=== PATIENT | male | born 1970 | race African-American/Black ===

== ENCOUNTER 2017-09-18 17:01 | Inpatient (IN) | payer OTHER ==
[2017-09-18] MEDS: HYDROmorphONE 2 MG/ML SYG IV (17:31)
[2017-09-18] MEDS: ONDANSETRON 4 MG INJ IV (17:31)
[2017-09-18] MEDS: SOD CHLORIDE 0.9% 500 ML IV (17:32)
[2017-09-18 17:40] LABS: ADD MAN DIFF? NO
[2017-09-18 17:48] LABS: BASOPHILS % 0.2 % (0.0-2.0); EOSINOPHILS % 0.1 % (0.0-7.0); HEMATOCRIT 44.1 % (42.0-52.0); HEMOGLOBIN 13.9 g/dl (14.0-18.0); LYMPHOCYTES # 1.1 10^3/ul (0.8-2.9); LYMPHOCYTES % 6.7 % (15.0-51.0); MEAN CORPUSCULAR HEMOGLOBIN 26.5 pg (29.0-33.0); MEAN CORPUSCULAR HGB CONC 31.5 g/dl (32.0-37.0); MEAN PLATELET VOLUME 9.1 fl (7.4-10.4); MONOCYTES % 5.9 % (0.0-11.0); NEUTROPHIL # 13.9 10^3/ul (1.6-7.5); NEUTROPHILS % 86.7 % (39.0-77.0); PLATELET COUNT 236 10^3/UL (140-415); RED BLOOD COUNT 5.25 10^6/ul (4.70-6.10); RED CELL DISTRIBUTION WIDTH 13.9 % (11.5-14.5)
[2017-09-18 18:31] LABS: ANION GAP 15 (8-16); BLOOD UREA NITROGEN 13 mg/dl (7-20); CALCIUM 10.1 mg/dl (8.4-10.2); CARBON DIOXIDE 26 mmol/L (21-31); CHLORIDE 109 mmol/L (97-110); CREATININE 1.15 mg/dl (0.61-1.24); GLUCOSE 106 mg/dl (70-220); POTASSIUM 3.9 mmol/L (3.5-5.1); SODIUM 146 mmol/L (135-144)
[2017-09-18] MEDS: SOD CHLORIDE 0.9% 100 ML (18:33)
[2017-09-18] MEDS: IOHEXOL 300MG/ML 150 ML BTL (18:34)
[2017-09-18] MEDS: LORAZEPAM 2 MG INJ IV ×2 (20:18→20:25)
[2017-09-18] MEDS: HYDROmorphONE 1 MG/ML SYG IM (21:59)
[2017-09-18 22:34] LABS: INR 0.93; PARTIAL THROMBOPLASTIN TIME 24.1 Sec (25.0-35.0); PROTIME 12.6 Sec (11.9-14.9)
[2017-09-19] MEDS ORDERED: DOCUSATE SODIUM 100 MG CAP PO (00:30)
[2017-09-19] MEDS: FAMOTIDINE 20 MG TAB PO ×3 (00:30→20:20)
[2017-09-19] MEDS ORDERED: ZOLPIDEM 5 MG TAB PO (00:30)
[2017-09-19] MEDS ORDERED: NACL 0.9% 3 ML SYG IV (00:30)
[2017-09-19] MEDS ORDERED: ONDANSETRON 4 MG TAB PO (00:30)
[2017-09-19] MEDS ORDERED: HYDROCODONE/APAP (5/325) TAB PO (00:30)
[2017-09-19] MEDS: HYDROCODONE/APAP (5/325) TAB PO ×2 (03:08→11:51)
[2017-09-19] MEDS: LORAZEPAM 2 MG INJ IV (13:04)
[2017-09-19] MEDS: ALBUTEROL/IPRATROPIUM (NEB) 3 ML AMP HHN ×2 (17:04→19:34)
[2017-09-19] MEDS: KETOROLAC 15 MG INJ IV ×2 (18:06→23:47)
[2017-09-20] MEDS: ALBUTEROL/IPRATROPIUM (NEB) 3 ML AMP HHN ×6 (00:23→20:51)
[2017-09-20] MEDS: LORAZEPAM 2 MG INJ IV (05:43)
[2017-09-20 05:50] LABS: ADD MAN DIFF? NO
[2017-09-20 05:57] LABS: WHITE BLOOD COUNT 9.4 10^3/ul (4.8-10.8)
[2017-09-20 05:57] LABS: BASOPHILS % 0.2 % (0.0-2.0); EOSINOPHILS # 0.1 10^3/ul (0.0-0.5); EOSINOPHILS % 1.5 % (0.0-7.0); HEMOGLOBIN 12.7 g/dl (14.0-18.0); LYMPHOCYTES # 1.8 10^3/ul (0.8-2.9); LYMPHOCYTES % 18.6 % (15.0-51.0); MEAN CORPUSCULAR HEMOGLOBIN 26.5 pg (29.0-33.0); MEAN CORPUSCULAR HGB CONC 31.8 g/dl (32.0-37.0); MEAN CORPUSCULAR VOLUME 83.3 fl (82.0-101.0); MEAN PLATELET VOLUME 9.2 fl (7.4-10.4); MONOCYTE # 0.8 10^3/ul (0.3-0.9); MONOCYTES % 8.1 % (0.0-11.0); NEUTROPHIL # 6.7 10^3/ul (1.6-7.5); NEUTROPHILS % 71.3 % (39.0-77.0); PLATELET COUNT 192 10^3/UL (140-415); RED CELL DISTRIBUTION WIDTH 13.8 % (11.5-14.5)
[2017-09-20 06:20] LABS: ANION GAP 14 (8-16); BLOOD UREA NITROGEN 9 mg/dl (7-20); CALCIUM 9.1 mg/dl (8.4-10.2); CARBON DIOXIDE 28 mmol/L (21-31); CHLORIDE 106 mmol/L (97-110); CREATININE 1.14 mg/dl (0.61-1.24); GLUCOSE 107 mg/dl (70-220); POTASSIUM 3.5 mmol/L (3.5-5.1); SODIUM 144 mmol/L (135-144)
[2017-09-20] MEDS: FAMOTIDINE 20 MG TAB PO ×2 (09:05→20:08)
[2017-09-20] MEDS: KETOROLAC 15 MG INJ IV ×2 (13:06→20:08)
[2017-09-21] MEDS ORDERED: traMADol 50 MG TAB (15:55)
== END 2017-09-20 21:00 | disposition home or self-care (01) | DRG 183 ==
LOC: MS1 23:31 → E/R 17:01
DX: S22.42XA Multiple fractures of ribs, left side, initial encounter for closed fracture (principal); S27.331A Laceration of lung, unilateral, initial encounter; S27.2XXA Traumatic hemopneumothorax, initial encounter; V28.0XXA Motorcycle driver injured in noncollision transport accident in nontraffic accident, initial encounter; Y93.55 Activity, bike riding
CPT/HCPCS: 71010; 71045; 71260; 74177; 80048; 85025; 85610; 85730; 93005; 94640; 94664; 96372; 96374; 96375; 99285-25